=== PATIENT | female | born 1945 | race Caucasian/White ===

== ENCOUNTER 2016-07-04 07:49 | Day surgery (SDC) | payer MEDICARE ==
[~2016-07-04] VITALS: Ht 154.9 cm; Wt 95.7 kg
[2016-07-04 09:07] LABS: BASOPHILS 0.1 % (0.0-2.0); EOSINOPHILS 3.1 % (0-7); HEMATOCRIT 32.1 % (36.0-48.0); HEMOGLOBIN 10.2 g/dL (12-16); IMMATURE GRANULOCYTES 0.4 % (0-5); LYMPHOCYTES 13.1 % (15-50); MCH 30.5 pg (26.0-34.0); MCHC 31.8 g/dL (31.0-37.0); MCV 96.1 fL (80.0-100.0); MEAN PLATELET VOLUME 10.1 fL (7.4-10.4); MONOCYTES 5.3 % (2-11); PLATELET COUNT 139 10x3/uL (130-400); RBC 3.34 10x6/uL (4.00-5.40)
[2016-07-04 09:21] LABS: ANION GAP 16.9 mmol/L (8-16); CALCIUM 9.7 mg/dL (8.5-10.1); CARBON DIOXIDE 23.4 mmol/L (21.0-32.0); CREATININE - SERUM 5.6 mg/dL (0.6-1.3); POTASSIUM - SERUM 4.3 mmol/L (3.5-5.1)
[2016-07-04] MEDS ORDERED: SYNTHROID175 MCG PO (09:23)
[2016-07-04] MEDS ORDERED: VALIUM5 MG PO (09:24)
[2016-07-04] MEDS ORDERED: LUMIGAN 0.01%2.5 ML EACH EYE (09:25)
[2016-07-04] MEDS ORDERED: LASIX80 MG PO (09:25)
[2016-07-04] MEDS ORDERED: ULTRAM50 MG PO (09:26)
[2016-07-04] MEDS ORDERED: PHOSLO667 MG PO (09:26)
[2016-07-04 09:27] LABS: INR 1.13 (0.85-1.17); PROTIME 14.4 SECONDS (11.6-15.0)
[2016-07-04] MEDS ORDERED: ELIQUIS5 MG PO (09:27)
[2016-07-04 09:28] LABS: APTT 29.2 SECONDS (22.8-39.4)
[2016-07-04 09:39] VITALS: Ht 154.9 cm; Wt 95.7 kg
--- NOTE | 2016-07-04 10:36 | NUR ---
0993 DR. MAYELIN DANG
--- NOTE | 2016-07-04 10:43 | NUR ---
1000 REJI, OR NURSE NOTIFIED PT. DECLINED PRE OP PILLS.. KEVYN MORA APN PAGED FOR PRE OP ORDERS. 1040 LABS CLEARED PER PROTOCOL.
--- NOTE | 2016-08-15 10:17 | HP ---
PATIENT: HOUSTON MEDRANO MEDICAL RECORD: [id number] ACCOUNT: [id number] LOCATION:[facility] : 49 ADMISSION DATE: 07/04/16 HISTORY AND PHYSICAL EXAMINATION Addendum I saw the patient in the outpatient department. The patient has unfavorable anatomy for a graft and very unfavorable anatomy for a primary fistula. I think that attempts to open her looped forearm fistula would be futile. I elected to place a large looped AV graft fistula on the left. The risks, possible complications and alternatives to procedure were explained to the patient. She elects to proceed. TRANSINT:[id number] Voice Confirmation ID: [id number] DOCUMENT ID: [id number] JACOB DICK MD at 1017 CC: [id number] DICTATION DATE: 07/04/16 1519 SOFTWARE MANAGER: 07/04/16 1529 [facility] 07/04/16 [place] [id number] [place] [address]
--- NOTE | 2016-08-15 10:17 | OP ---
PATIENT NAME: HOUSTON MEDRANO MEDICAL RECORD: [id number] :49 [facility] DATE: SURGEON: JACOB DICK MD DATE OF OPERATION: 07/04/2016 PREOPERATIVE DIAGNOSIS: End-stage renal disease without chronic access for hemodialysis. POSTOPERATIVE DIAGNOSIS: End-stage renal disease without chronic access for hemodialysis. PROCEDURE: Placement of left arm looped 6 mm AV graft fistula from the brachial artery to brachial vein. SURGEON: Jacob Dick MD SCROLL SHEAR OPERATOR: None. BLOOD LOSS: 250 cc. ANESTHESIA: General. COMPLICATIONS: None. The risks, possible complications and alternatives to procedure were explained to the patient. She elects to proceed. OPERATIVE COURSE: The patient was conveyed to the operating room electively on 07/04/2016. General anesthesia was induced by the anesthesia staff. The left upper extremity was abducted at 90 degrees to the patient's trunk. The left upper extremity was sterilely prepped and draped. I located the brachial artery and brachial vein under real-time ultrasound. An axial incision was accomplished on the medial aspect of the left arm. I dissected down to a brachial artery and brachial vein were encircled with vessel loops. I then tunneled a 6 mm PTFE graft through 2 counterincisions in the lateral aspect of the arm. I then tunneled back to the main incision. During the tunneling process, there was no apparent kinking or twisting of the graft. Intravenous heparin was given. A small arteriotomy was accomplished. I then punched out some ovals in the artery with an aortic punch. A side-to-end artery to graft anastomosis was then fashioned with a running 6-0 Prolene. I then beveled the venous end of the graft. A longitudinal venotomy was accomplished. An end-to-side graft to venous anastomosis was then accomplished with a running 6-0 Prolene suture. I then flushed out through the graft. There was a good thrill within the graft. Some protamine was given to partially reverse the effect in the intravenous heparin that had been given. Carmella was added to the wound for additional hemostasis. At no time during this procedure was there any apparent nervous injury. The subdermis was approximated with interrupted 3-0 Vicryls. The skin was approximated with a running intracuticular 4-0 Vicryl Rapide suture and then Dermabond. The patient was then extubated and conveyed to post-anesthesia care unit where she was in stable condition. She will be dismissed home on hydrocodone for OPERATIVE REPORT [id number] HOUSTON MEDRANO S pain. I will see her in the office in 2-3 weeks. TRANSINT:[id number] Voice Confirmation ID: [id number] DOCUMENT ID: [id number] JACOB DICK MD at 1017 CC: HOLLIE CASAS MD [id number] DICTATION DATE: 07/04/16 1522 SUPERVISOR INSPECTION: 07/04/16 1536 [facility] 07/04/16 [place] [id number] [place] [address]
== END 2016-07-04 17:30 | disposition home or self-care (01) ==
LOC: D.OPS 07:49
PROVIDERS: Surgery
DX: N18.6 End stage renal disease (principal)

== ENCOUNTER 2016-07-25 06:24 | Day surgery (SDC) | payer MEDICARE ==
[~2016-07-25] VITALS: Ht 154.9 cm; Wt 101.9 kg
--- NOTE | ~2016-07-25 | OP ---
PATIENT NAME: HOUSTON MEDRANO MEDICAL RECORD: [id number] :49 LOCATION:[facility] ADMISSION DATE: SURGEON: JACOB DICK MD DATE OF OPERATION: 07/25/2016 PREOPERATIVE DIAGNOSIS: Postoperative subcutaneous hematoma. POSTOPERATIVE DIAGNOSIS: Postoperative subcutaneous hematoma. PROCEDURE: Incision and drainage of the subcutaneous hematoma of the left arm. SURGEON: Jacob Dick MD. TERMINAL MAKE UP OPERATOR: None. BLOOD LOSS: Minimal. ANESTHESIA: General. COMPLICATIONS: None. The risks, possible complications and alternatives of the procedure were explained to the patient. She elects to proceed. OPERATIVE COURSE: The patient was conveyed to the operating room electively on 07/25/2016. General anesthesia was induced by anesthesia staff. The left arm was abducted at 90 degrees to the patient's trunk. The sutures were cut. I entered down into the wound. Hematoma was identified. It was removed. I lavaged with normal saline. A 10-Kyrgyz round Sy drain was placed. I then closed the wound in layers. I will see the patient in my office in 2-3 weeks for drain removal. TRANSINT:[id number] Voice Confirmation ID: [id number] DOCUMENT ID: [id number] 09/14/2016, Edited for patient information and date of surgery, dmm. JACOB DICK MD CC: TONY GRACE MD [id number] DICTATION DATE: 09/09/161849 DEVELOPMENTAL TRAINING COUNSELOR: 09/09/162019 [facility] 07/26/16 [facility] [address] [place] [address]
[~2016-07-25 06:24] MED LIST: ELIQUIS5 MG PO; LASIX80 MG PO; LUMIGAN 0.01%2.5 ML EACH EYE; PHOSLO667 MG PO; SYNTHROID175 MCG PO; ULTRAM50 MG PO; VALIUM5 MG PO
[2016-07-25] MEDS ORDERED: TENORMIN25 MG PO (07:17)
[2016-07-25] MEDS ORDERED: ATARAX 25 MG TA25 MG PO (07:18)
[2016-07-25] MEDS ORDERED: DIFLUCAN100 MG PO (07:19)
[2016-07-25] MEDS ORDERED: OMEPRAZOLE40 MG PO (07:19)
[2016-07-25 07:20] VITALS: BMI 40.3
[2016-07-25] MEDS ORDERED: HYDROCODON-ACE1 EAC7 PO (07:25)
[2016-07-25 07:48] LABS: BASOPHILS 0.1 % (0.0-2.0); EOSINOPHILS 2.6 % (0-7); HEMATOCRIT 25.1 % (36.0-48.0); HEMOGLOBIN 8.1 g/dL (12-16); IMMATURE GRANULOCYTES 0.5 % (0-5); LYMPHOCYTES 10.2 % (15-50); MCH 30.9 pg (26.0-34.0); MCHC 32.3 g/dL (31.0-37.0); MCV 95.8 fL (80.0-100.0); MEAN PLATELET VOLUME 9.6 fL (7.4-10.4); MONOCYTES 5.2 % (2-11); NEUTROPHILS 81.4 % (40-80); PLATELET COUNT 156 10x3/uL (130-400); RBC 2.62 10x6/uL (4.00-5.40); WBC 10.3 10x3/uL (4.8-10.8)
[2016-07-25 07:57] LABS: APTT 38.6 SECONDS (22.8-39.4); INR 1.46 (0.85-1.17); PROTIME 17.6 SECONDS (11.6-15.0)
[2016-07-25 07:59] LABS: ANION GAP 15.4 mmol/L (8-16); CALCIUM 9.1 mg/dL (8.5-10.1); CARBON DIOXIDE 25.4 mmol/L (21.0-32.0); CREATININE - SERUM 7.6 mg/dL (0.6-1.3); POTASSIUM - SERUM 3.8 mmol/L (3.5-5.1)
--- NOTE | 2016-07-25 08:25 | NUR ---
0815 PATIENTS LAB REPORTED TO DR. DICK, NO NEW ORDERS NOTED.
--- NOTE | 2016-07-25 12:22 | NUR ---
PT IS A RIGHT CARLOS, LEFT LEG WITH CELLULITIS. NO SCDS USED ON BLOOD THINNERS FOR AFIB. STOPED SATURDAY
[2016-07-25 13:25] VITALS: BP 138/62
--- NOTE | 2016-07-25 13:30 | NUR ---
REC'D PT FROM OR RECOVERY. PT A/O, SLIGHTLY DROWSY. FAMILY AT BEDSIDE. DRESSING TO LEFT UPPER ARM WITH VANESSA DRAIN WITH APPROX 20ML OF SEROUS DRAINAGE. FINGER TIPS COOL TO TOUCH. LEFT RADIAL PULSE PRESENT. ORIENTED PT TO ROOM. CALL LIGHT WITH IN REACH. BED ALARM ON. WILL CONT. TO MONITOR.
--- NOTE | 2016-07-25 14:56 | NUR ---
PT SLEEPING. NO DISTRESS OR DISCOMFORT NOTED. RESP EVEN AND UNLABORED. WEARING O2 AT 2 LITERS VIA NC. LUE ELEVATED ON PILLOWS. BED DOWN. SIDE RAILS UP X2. CALL LIGHT WITH IN REACH. BED ALARM ON. WILL CONT. TO MONITOR.
--- NOTE | 2016-07-25 15:56 | NUR ---
RESTS WITH EYES CLOSED. VS WNL. LEFT ARM DRSG WITH VANESSA DRAIN INTACT. CALL LIGHT IN REACH. WILL CONT. PLAN OF CARE.
[2016-07-25 16:00] VITALS: BP 111/54; BP 150/74; Ht 154.9 cm; Wt 101.9 kg
--- NOTE | 2016-07-25 16:02 | NUR ---
PT SLEEPING. APPEARS COMFORTABLE. RESP EVEN AND UNLABORED. VANESSA DRAIN WITH APPROX 30 ML OF SEROUS DRAINAGE NOTED. RADIAL PULSE PRESENT. ELEVATED LEFT ARM ON PILLOWS. BED ALARM ON. CALL LIGHT WITH IN REACH. WILL CONT. TO MONITOR.
--- NOTE | 2016-07-25 17:15 | NUR ---
PT UPSET BECAUSE SHE WANTS A CHEESE BURGAR AND FRIES WITH A REGULAR COKE FOR SUPPER. NURSE ATTEMPTED TO EXPLAIN PT'S DIET ORDERS TO HER. PT REFUSES TO EAT. STATES SHE IS CALLING SOMEONE TO BRING HER FOOD.
[2016-07-25 20:02] VITALS: BP 98/30
--- NOTE | 2016-07-25 20:52 | NUR ---
HS MEDS GIVEN WITH FRESH ICE WATER, PT DENIES PAIN OR NEEDS, BED LOW, CL IN REACH.
--- NOTE | 2016-07-26 01:05 | NUR ---
RESTING WITH EYES CLOSED, RESPERATIONS EVEN, NO S/S DISTRESS NOTED.
[2016-07-26 01:11] VITALS: BP 124/30
[2016-07-26 04:36] VITALS: BP 124/48
[2016-07-26 08:00] VITALS: BP 144/64
--- NOTE | 2016-07-26 08:00 | NUR ---
ASSESSMENT DONE. PT A/O. REQUESTS COKE TO DRINK. ASSISTED PT WITH REPOSITIONING IN BED. DRESSING TO LEFT UPPER ARM CLEAN, DRY AND INTACT. LEFT RADIAL PULSE PALPABLE. VANESSA DRAIN WITH 10ML OF SEROUS DRAINAGE NOTED. PT EDUCATED ON DRAIN CARE. DR. CASAS HERE. PT TO BE D/C'D. CALL LIGHT WITH IN REACH. WILL CONT. TO MONITOR.
--- NOTE | 2016-07-26 09:41 | NUR ---
DISCHARGE INSTRUCTIONS GIVEN TO PT. DEMONSTRATED VANESSA DRAIN CARE TO PT AND PT'S SPOUSE, AND INSTRUCTED PT TO EMPTY TWICE A DAY AND RECORD AMT AND TO TAKE RECORD TO F/U APPT WITH DR. DICK. PT VERBALIZED UNDERSTANDING. PT GIVEN MEASURING CUP TO TAKE HOME. PT D/C HOME VIA PRIVATE VEHCILE. PT TO RETURN TO HER SCHEDULED DIALYSIS TOMORROW.
--- NOTE | 2016-07-30 08:57 | DS ---
PATIENT:HOUSTON MEDRANO :49 MEDICAL RECORD: [id number] DISCHARGE SUMMARY ADMISSION DATE: 07/25/16 DISCHARGE DATE: 07/26/16 REASON FOR ADMISSION: 1. Status post left upper extremity access revision. 2. Yeast infection. 3. Hypothyroidism. 4. End-stage renal disease with noncompliance with dialysis. HOSPITAL COURSE: This 70-year-old female had her access revised and has a VANESSA drain with sterile wrapping. She is ready to go home, declined her blood work today even though her hematocrit was 25. She has not dialyzed since last week. She is alert and oriented times 3. Normocephalic, atraumatic. Left upper extremity access is wrapped with an Demar wrap, but has good distal pulses. Chest is regular rhythm. Decreased breath sounds at the bases. Positive lower extremity edema. Unsure of her ambulatory status, but she mentioned she is going home. She has her family on the way. I advised her to have dialysis today. She refused to stay, I would have like to check her hematocrit. She understands that she can from uremic symptoms such as hyperkalemia, anemia or the combination of the above. She understands the risks. I did not make her leave against medical advice. Home meds are the ones that she listed. We will not make any changes; Synthroid 175 a day, Valium 5 mg p.r.n., Lasix 160 a day, Lumigan 1 drop each eye at night, Ultram 50 mg q.4, PhosLo 1 with meals t.i.d.; Eliquis 5 mg b.i.d., would have preferred 2.5 b.i.d.; Diflucan 100 b.i.d., would have preferred 100 a day; Atarax 25 q.i.d. p.r.n., atenolol 25 a day, hydrocodone 5/325 p.r.n. and Prilosec 40 a day. She is to follow up with her dialysis unit and I have advised her to call and go this morning and have her labs checked there as well since she is from [place]. I did wish her well and for her to come back for any problems and if she changed her mind, to please have the nurses call me and we will run her stat lab and dialysis. TRANSINT:[id number] Voice Confirmation ID: [id number] DOCUMENT ID: [id number] HOLLIE CASAS MD at 0857 CC: [id number] DICTATION DATE: 07/26/16746 FORK LIFT TECHNICIAN: 07/26/16816 [facility] 07/26/16 [place] [id number] [place] [id number]
--- NOTE | 2016-08-15 10:18 | HP ---
PATIENT: HOUSTON MEDRANO MEDICAL RECORD: [id number] ACCOUNT: [id number] LOCATION:[facility] : 49 ADMISSION DATE: 07/25/16 HISTORY AND PHYSICAL EXAMINATION CHIEF COMPLAINT: Arm swelling. HISTORY OF PRESENT ILLNESS: The patient has arm swelling. This is consistent with postoperative subcutaneous hematoma. The patient has been on Eliquis. She is here today to undergo incision and drainage of the left hematoma with placement of a drain. Due to the fact that she lives down in [place] and that she has been on Eliquis, I think she is going to be observed overnight in order to ensure that she does not have bleeding that would require a trip to the Emergency Room. The risks, possible complications and alternatives to procedure were explained to the patient. She elects to proceed. ALLERGIES: HALDOL, WHICH SHE STATES CAUSES PSYCHOSIS. HOME MEDICINES: Hydroxyzine, [place], omeprazole, fluconazole, Eliquis, Lasix, Ultram, PhosLo, Synthroid, atenolol, Valium. PAST MEDICAL AND SURGICAL HISTORY: End-stage renal disease, on hemodialysis Saturday, Saturday, and Saturday and was last dialyzed on Saturday; hypothyroidism, on replacement therapy; type 2 diabetes mellitus, atrial fibrillation, history of pacemaker, history of cardiac ablation, history of left arm arteriovenous fistula placement, hiatal hernia, and gastroesophageal reflux, which is controlled with medicines; chronic respiratory failure, she is on O2 at 2 liters at night. Morbid obesity, BMI over 40; also, osteoarthritis. REVIEW OF SYSTEMS: Negative for CVA or seizures. Negative for hepatitis. Review of systems is negative other than as is described above. PHYSICAL EXAMINATION: GENERAL: The patient does not appear acutely ill. She does appear chronically ill. VITAL SIGNS: Reviewed. HEAD: External ears appear normal. EYES: Extraocular movements are intact. NECK: Trachea is midline. CHEST: No intercostal retractions. PULMONARY: Nonlabored, no stridor. ABDOMEN: Nontender. EXTREMITIES: Swollen left arm with peau d'orange and tenderness. No paresthesias or numbness involving the left upper extremity. She does have a thrill within the graft, which is a looped graft. IMPRESSION: Swelling of the left forearm following placement of left arm looped arteriovenous graft fistula. PLAN: Will be incision and drainage of a hematoma. Placement of drain. TRANSINT:[id number] Voice Confirmation ID: [id number] DOCUMENT ID: [id number] HISTORY AND PHYSICAL [id number] HOUSTON MEDRANO ROBERT MD at 1018 CC: ELDER MARI MD and TONY GRACE MD [id number] DICTATION DATE: 07/25/16 1257 DIRECTOR SPEECH AND HEARING: 07/25/16 1355 [facility] 07/26/16 [place] [id number]
== END 2016-07-26 09:40 | disposition home or self-care (01) ==
LOC: D.M2 06:24 → D.OPS 06:24 → D.M2 13:00 → D.OPS 07-26 09:40
PROVIDERS: Anesthesiology
DX: L76.32 Postprocedural hematoma of skin and subcutaneous tissue following other procedure (principal); Y83.2 Surgical operation with anastomosis, bypass or graft as the cause of abnormal reaction of the patient, or of later complication, without mention of misadventure at the time of the procedure; E11.22 Type 2 diabetes mellitus with diabetic chronic kidney disease; I12.0 Hypertensive chronic kidney disease with stage 5 chronic kidney disease or end stage renal disease; N18.6 End stage renal disease; Z99.2 Dependence on renal dialysis; Z91.15 Patient's noncompliance with renal dialysis; Z87.891 Personal history of nicotine dependence; D63.1 Anemia in chronic kidney disease; E83.39 Other disorders of phosphorus metabolism; D68.9 Coagulation defect, unspecified; B37.9 Candidiasis, unspecified; J96.10 Chronic respiratory failure, unspecified whether with hypoxia or hypercapnia; Z99.81 Dependence on supplemental oxygen; I48.91 Unspecified atrial fibrillation; Z79.01 Long term (current) use of anticoagulants; Z95.0 Presence of cardiac pacemaker; K21.9 Gastro-esophageal reflux disease without esophagitis; M19.90 Unspecified osteoarthritis, unspecified site; K44.9 Diaphragmatic hernia without obstruction or gangrene; E66.01 Morbid (severe) obesity due to excess calories; Z68.41 Body mass index [BMI] 40.0-44.9, adult; Z79.891 Long term (current) use of opiate analgesic; Z79.899 Other long term (current) drug therapy; Z88.8 Allergy status to other drugs, medicaments and biological substances